=== PATIENT | female | born 1985 | race Caucasian/White ===

== ENCOUNTER 2017-03-02 01:54 | Emergency (ER) | payer OTHER ==
[~2017-03-02] VITALS: Ht 162.6 cm; Wt 65.0 kg
--- NOTE | 2017-03-02 02:14 | PD ---
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 She states that she accidentally stuck herself with a 30-gauge needle that was using a source patient. She states that it appears her her glove into her thumb. She immediately washed her hand with antibacterial soap. She is up- to-date with immunizations. She is up-to-date with her hepatitis B. She denies any other injuries. She states that this was minor. The charge nurse is made aware of the exposure and the source patient's blood will be sent for rapid HIV. PFS Past Medical History Medical History: Denies Significant Hx Tetanus Vaccination: < 5 Years Past Surgical History Surgical History: No Previous Surgery Social History Alcohol Use: Yes Tobacco Use: No Review of Systems Except as stated in HPI: all other systems reviewed are Neg Physical Exam Narrative GENERAL: This is a well-nourished, well-developed patient, in no apparent distress. SKIN: No rashes, ecchymoses or lesions. Warm and dry. Patient has a small puncture wound to the volar pad of the left thumb. HEAD: Atraumatic. Normocephalic. EYES: PERRL, EOMI, no discharge or injection. No scleral icterus. EARS: Clear NOSE: Nasal turbinates appear normal. THROAT: Mucosa pink and moist. Airway patent. NECK: Trachea midline. supple, moves head freely. LUNGS: Clear to auscultation. CV: Regular in rhythm. ABDOMEN: Soft nontender. EXT: No clubbing cyanosis or edema. MDM Medical Decision Making Medical Screen Exam Complete: Yes Emergency Medical Condition: Yes Medical Record Reviewed: Yes Differential Diagnosis Differential diagnoses: Needlestick blood exposure, abrasion, contusion, hepatitis, HIV Narrative Course The patient's hepatitis and tetanus immunizations are up-to-date. The source patient's blood has been sent for rapid HIV. I find this to be low risk exposure. Post exposure prophylaxis is not indicated at this time. The patient will be notified of the source patient's HIV test when it becomes available. The patient is medically stable and return back to work. This is needlestick blood exposure Diagnosis Primary Impression: NEEDLESTICK BLOOD EXPOSURE Additional Instructions: Rest. Elevation. Daily wound care with soap, water, Neosporin. Follow-up with employee med. Med/Other Pt SpecificInfo: Wound Care Disposition: 01 DISCHARGE HOME Condition: Stable Andrea Smith March 02, 2017 02:14
[2017-03-02 04:24] VITALS: BP 130/70; PULSE 88; RESP 20; TEMP 98.6; O2SAT 100
== END 2017-03-02 05:34 | disposition home or self-care (01) ==
LOC: NEPC 01:54
DX: S61.032A Puncture wound without foreign body of left thumb without damage to nail, initial encounter (principal); W46.0XXA Contact with hypodermic needle, initial encounter; Y93.F9 Activity, other caregiving; Y99.0 Civilian activity done for income or pay; Y92.239 Unspecified place in hospital as the place of occurrence of the external cause
CPT/HCPCS: 99282